=== PATIENT | male | born 1970 | race Caucasian/White ===

== ENCOUNTER 2017-06-19 10:44 | Outpatient (CLI) | payer OTHER ==
--- NOTE | 2017-06-19 11:35 | RAD ---
TWO VIEWS CHEST: Comparison: 05-06-07 History: Former smoker. FINDINGS: Two views of the chest show normal sized cardiomediastinal silhouette. There is no evidence of consol idation, mass, or pleural effusion. The bones are unremarkable. IMPRESSION: No evidence of acute cardiopulmonary disease. POS: [facility]
[2017-06-21 09:19] LABS: A/G Ratio 1.8 (0.7-1.7); Albumin 4.2 g/dL (2.9-4.4); Alpha 1 0.2 g/dL (0.0-0.4); Alpha 2 0.5 g/dL (0.4-1.0); Beta 0.9 g/dL (0.7-1.3); Gamma 0.7 g/dL (0.4-1.8); Globulin, Total 2.4 (2.2-3.9); M-Spike Not Observed g/dL (Not Observed)
[2017-06-21 16:14] LABS: ANCA Pattern <1:20 titer (Neg:<1:20); ANCA Total <1:20 titer (Neg:<1:20); Atypical pANCA <1:20 titer (Neg:<1:20)
[2017-06-22 23:09] LABS: Arsenic - Blood 6 ug/L (2-23); Lead - Blood 1 ug/dL (0-19); Mercury - Blood None Detected ug/L (0.0-14.9)
== END 2017-06-19 10:45 | disposition home or self-care (01) ==
LOC: SCSRAD 10:44
PROVIDERS: ATTEND Psychiatry & Neurology Neurology
DX: G63 Polyneuropathy in diseases classified elsewhere (principal)
CPT/HCPCS: 36415; 71046; 82175; 83655; 83825; 84165; 86235; 86255; 86256

== ENCOUNTER 2020-06-28 12:44 | Outpatient (CLI) | payer BC ==
--- NOTE | 2020-06-28 13:23 | RAD ---
EXAM: XR Lumbar Spine Min 4 View PROVIDED CLINICAL HISTORY: Lumbar radiculopathy. Low back pain that radiates down both legs. COMPARISON: None FINDINGS: There are 5 nonrib-bearing lumbar-type vertebral bodies. Scattered osteophytes are seen in the lumbar spine. There is loss of intervertebral disc height at the L5-S1 level. Vertebral body heights are within normal limits. No fracture or subluxation is seen involving the lumbar spine. There is no abno rmal translational motion between the flexion and extension views. Surgical clips overlie the upper quadrants bilaterally. IMPRESSION: Mild degenerative changes lumbar spine without fracture or subluxation seen.
== END 2020-06-28 12:45 | disposition home or self-care (01) ==
LOC: TBSIIMAG 12:44
PROVIDERS: ATTEND Neurological Surgery
DX: M47.26 Other spondylosis with radiculopathy, lumbar region (principal)
CPT/HCPCS: 72110

== ENCOUNTER 2020-09-28 10:47 | Outpatient (CLI) | payer BC | END 2020-09-28 10:48 | disposition home or self-care (01) | LOC: TBSIIMAG 10:47 → SCSMRI 10:48 | PROVIDERS: ATTEND Neurological Surgery | DX: M48.062 Spinal stenosis, lumbar region with neurogenic claudication (principal); M43.16 Spondylolisthesis, lumbar region; M51.86 Other intervertebral disc disorders, lumbar region; M48.07 Spinal stenosis, lumbosacral region | CPT/HCPCS: 72148 ==

== ENCOUNTER 2021-04-15 07:16 | Day surgery (SDC) | payer BC ==
[2021-04-14 10:45] VITALS: BMI 33.9
[2021-04-15] MEDS ORDERED: Iopamidol-M 200 41% 20 ML VIAL ONE (08:51)
[2021-04-15 09:26] VITALS: TEMP 97.5
[2021-04-15 10:21] VITALS: BP 138/97
== END 2021-04-15 10:20 | disposition home or self-care (01) ==
LOC: RAD 07:16
PROVIDERS: ATTEND Neurological Surgery
PROC: B02B1ZZ Computerized Tomography (CT Scan) of Spinal Cord using Low Osmolar Contrast (ICD-10-PCS; principal; 2021-04-15)
DX: M43.16 Spondylolisthesis, lumbar region (principal); M47.817 Spondylosis without myelopathy or radiculopathy, lumbosacral region; M48.061 Spinal stenosis, lumbar region without neurogenic claudication; M48.07 Spinal stenosis, lumbosacral region; M16.11 Unilateral primary osteoarthritis, right hip; G62.9 Polyneuropathy, unspecified; M50.90 Cervical disc disorder, unspecified, unspecified cervical region; M51.9 Unspecified thoracic, thoracolumbar and lumbosacral intervertebral disc disorder; Z79.899 Other long term (current) drug therapy
CPT/HCPCS: 62304; 72132; Q9966

== ENCOUNTER 2022-07-06 10:07 | Outpatient (CLI) | payer OTHER | END 2022-07-06 10:08 | disposition home or self-care (01) | LOC: BICRAD 10:07 | PROVIDERS: ATTEND Podiatrist | DX: M79.671 Pain in right foot (principal); M24.871 Other specific joint derangements of right ankle, not elsewhere classified; M77.31 Calcaneal spur, right foot ==